=== PATIENT | female | born 1965 | race Caucasian/White ===

== ENCOUNTER → 2017-03-03 | Outpatient (CLI) | payer OTHER | LOC: BMCIMAGING 15:03 | PROVIDERS: ATTEND Physician Assistant | DX: N83.202 Unspecified ovarian cyst, left side (principal); D25.1 Intramural leiomyoma of uterus; Z90.721 Acquired absence of ovaries, unilateral ==

== ENCOUNTER → 2017-06-01 | Outpatient (CLI) | payer OTHER | LOC: FIMAGING 14:54 | PROVIDERS: ATTEND Physician Assistant | DX: N83.202 Unspecified ovarian cyst, left side (principal); D25.9 Leiomyoma of uterus, unspecified ==

== ENCOUNTER → 2017-06-13 | Outpatient (CLI) | payer OTHER | LOC: FIMAGING 08:49 | PROVIDERS: ATTEND Physician Assistant | DX: R92.8 Other abnormal and inconclusive findings on diagnostic imaging of breast (principal) ==

== ENCOUNTER 2018-06-13 03:29 | Emergency (ER) | payer OTHER ==
--- NOTE | 2018-06-13 03:52 | EDPHY ---
H & P Stated Complaint: TINGLING TO L ARM, STIFFNESS TO NECK Time Seen by Provider: 06/13/18 03:51 HPI/ROS: HPI CHIEF COMPLAINT: Left arm numbness tingling. HISTORY OF PRESENT ILLNESS: 53-year-old female otherwise healthy without any significant medical history does not take any daily medications presents emergency room at 4:00 a.m. The morning with left arm numbness. She states she woke up with this around 2:00 a.m.. This did not go away. Developed a headache this concerned her and she decided come the emergency room. She denies any chest pain or shortness of breath, denies focal weakness, only has numbness to her left arm. No facial numbness no leg numbness. Woke up with this around 2:00 a.m.. She states she went to sleep around midnight. Did not have this. Past Medical History: Denies medical history Past Surgical History: Denies surgical history Social History: Denies drugs alcohol tobacco. Family History: Noncontributory ROS REVIEW OF SYSTEMS: 10 Systems were reviewed and negative with the exception of the elements mentioned in the history of present illness. Exam Constitutional appears well nontoxic no acute distress triage nursing summary reviewed, vital signs reviewed, awake/alert. Eyes normal conjunctivae and sclera, EOMI, PERRLA. HENT normal inspection, atraumatic, moist mucus membranes, no epistaxis, neck supple/ no meningismus, no raccoon eyes. Respiratory clear to auscultation bilaterally, normal breath sounds, no respiratory distress, no wheezing. Cardiovascular rate normal, regular rhythm, no murmur, no edema, distal pulses normal. Gastrointestinal soft, non-tender, no rebound, no guarding, normal bowel sounds, no distension, no pulsatile mass. Genitourinary no CVA tenderness. Musculoskeletal no midline vertebral tenderness, full range of motion, no calf swelling, no tenderness of extremities, no meningismus, good pulses, neurovascularly intact. Skin pink, warm, & dry, no rash, skin atraumatic. Neurologic complains of left arm paresthesias, awake, alert and oriented x 3, AAOx3, moves all 4 extremities equally, motor intact, sensory intact, CN II-XII intact, normal cerebellar, normal vision, normal speech. Psychiatric normal mood/affect. Heme/Lymph/Immune no lymphadenopathy. Differential Diagnosis: Includes but is not limited to in a particular order paresthesias, neuropathy, CVA, TIA, intracranial bleed, anxiety, ACS Medical Decision Making: Plan for this patient IV establishment IV fluid bolus , chest x-ray, EKG, CT scan head without contrast, CT angiogram head and neck I will consult [facility]. Re-evaluation: 0403: Patient upon evaluation has no focal neuro deficit but complains of left arm numbness. 0413: I spoke with [facility] they recommend patient getting admitted and MRI of the brain MRI of the cervical spine to rule out MS given history of the abnormal MRI in 2013. The patient did not really follow-up about this MRI. Consulted Dr. Marcel Vasquez with [facility]. EKG interpretation by me on record in XDC system. Impression time of EKG 4:20 a.m. Sinus rhythm rate of 53 without any signs of acute ischemia. No ST elevation no ST depression. 0557: Patient re-evaluated still has numbness tingling left arm. The patient's EKG is nonischemic. Patient's troponin negative Patient had a CT scan head without contrast and CT angiogram head and neck these are negative for acute disease process. These were faxed over by [facility]. 5:15 a.m.. Plan for admission to the hospitalist service for further evaluation requiring MRI to rule out MS. This due to given that she had abnormal MRI in 2012 and really did not follow up. [facility] requesting MRI cervical spine and MRI brain with contrast for MS. Admit to the hospitalist service Spoke with Dr. Harrington Agrees to admit. Patient updated agrees for admission and plan. CT angiogram of the neck and head shows pulmonary nodules this was over-read by our radiologist. Not mentioned on the previous scan. Will contact the patient to make sure she has 12 month followup about her pulmonary nodules. 06/18/18 1546: Followed up with patient about her pulmonary nodules, she understands to have this addressed with her primary care doctor and have repeat imaging in 6-12 months. She does not smoke. I was able to contact her on her cell phone and she called back and we discussed this in detail. She additionally tells me that her left arm numbness tingling has resolved however she is due to follow up and have an MRI tomorrow of her head and neck. I did recommend she discussed with primary care doctor about her pulmonary nodules which she states her primary care doctor has already addressed with her. She understands she may need a follow-up CT for stability these pulmonary nodules. Source: Patient - Personal History LMP (Females 10-55): Unknown Current Tetanus Diphtheria and Acellular Pertussis (TDAP): Yes - Medical/Surgical History Hx Asthma: No Hx Chronic Respiratory Disease: No Hx Diabetes: No Hx Cardiac Disease: No Hx Renal Disease: No Hx Cirrhosis: No Hx Alcoholism: No Hx HIV/AIDS: No Hx Splenectomy or Spleen Trauma: No Other PMH: R OVARY REMOVED, OVARIAN CYST REMOVAL - Social History Smoking Status: Never smoked Constitutional: Initial Vital Signs Temperature (C) 36.4 C 06/13/18 03:37 Heart Rate 59 L 06/13/18 03:37 Respiratory Rate 16 06/13/18 03:37 Blood Pressure 134/75 H 06/13/18 03:37 O2 Sat (%) 98 06/13/18 03:37 O2 Delivery Mode Room Air Allergies/Adverse Reactions: No Known Allergies Allergy (Unverified 06/13/18 03:36) Home Medications: Medication Instructions Recorded NK [No Known Home Meds] 06/13/18 Medical Decision Making - Data Points Laboratory Results: Laboratory Results 06/13/18 04:15 06/13/18 04:15 Medications Given: Discontinued Medications Sodium Chloride (Ns) 1,000 mls @ 0 mls/hr IV EDNOW ONE; Wide Open PRN Reason: Protocol Stop: 06/13/18 04:01 Last Admin: 06/13/18 04:34 Dose: 1,000 mls Point of Care Test Results: Chemistry 06/13/18 06/13/18 04:22 04:18 POC Sodium 141 mEq/L mEq/L (135-145) POC Potassium 3.4 mEq/L mEq/L (3.3-5.0) POC Chloride 104 mEq/L mEq/L (97-110) POC BUN 19 mg/dL mg/dL (7-23) POC Creatinine 0.8 mg/dL mg/dL (0.6-1.0) POC Glucose 93 mg/dL mg/dL (70-100) POC Troponin I 0.00 ng/mL ng/mL (0.00-0.08) ISTAT H&H 06/13/18 04:22 POC Hgb 13.3 gm/dL gm/dL (12.6-16.3) POC Hct 39 % % (38-47) Departure - Departure Disposition: [facility] Inpatient Acute Clinical Impression: Arm paresthesia, left Condition: Good Additional Instructions: Please call and schedule an apt with your primary care provider, please schedule and MRI. If your symptoms return, please come back to the hospital. Referrals: Vandana Zarate PA [Primary Care Provider] - As per Instructions
[2018-06-13] MEDS ORDERED: NS 1,000 ML IV ONE (04:00)
[2018-06-13 04:25] LABS: PLATELET COUNT 255 10^3/uL (150-400)
[2018-06-13 04:34] LABS: INR 0.98 (0.83-1.16); PROTIME(PATIENT) 13.2 SEC (12.0-15.0)
[2018-06-13] MEDS ORDERED: IOPAMIDOL (ISOVUE 370) 75 ML BTL IV ONE (04:35)
[2018-06-13] MEDS ORDERED: ONDANSETRON DISINTEGRATING 4 MG TAB PO PRN (05:56)
[2018-06-13] MEDS ORDERED: ONDANSETRON 4 MG/2 ML VIAL IVP PRN (05:56)
[2018-06-13] MEDS ORDERED: ACETAMINOPHEN 325 MG TAB PO PRN (05:56)
--- NOTE | 2018-06-13 06:39 | PDHOSCONS ---
History and Physical - Chief Complaint L arm numbness - History of Present Illness 53 yo F w/ minimal PMHx presents with L arm numbness. She tells me she noted this when she woke up. She thinks she possiblY slept on her L arm. She has noted this L arm numbness on and off for years. The numbness lasted a few hours so she came in to the ED for evaluation. At the time of my evaluation her symptoms had resolved and she has no complaints. Review of an MRI from 2012 performed for new onset migraines demonstrates non-specific white matter hyperintensities of unclear significance. Due to this MRI finding the possibility of MS was entertained and hospital medicine was called for evaluation. CTH and CTA Head/Neck was performed in the ED and were unremarkable. After our conversation the patient would prefer to undergo work- up as an outpatient if possible. History Information - Allergies/Home Medication List Allergies/Adverse Reactions: No Known Allergies Allergy (Unverified 06/13/18 03:36) Home Medications: NK [No Known Home Meds] 06/13/18 [Last Taken Unknown] I have personally reviewed and updated: family history, medical history - Past Medical History no pertinent PMH - Surgical History Reports: no pertinent surgical hx - Family History Additional family history: Denies family hx MS - Social History Smoking Status: Never smoked Review of Systems Review of Systems: ROS: 10pt was reviewed & negative except for what was stated in HPI & below Physical Exam Physical Exam: Temp Pulse Resp BP Pulse Ox 36.4 C 59 L 16 134/75 H 98 06/13/18 03:37 06/13/18 03:37 06/13/18 03:37 06/13/18 03:37 06/13/18 03:37 Constitutional: no apparent distress, not in pain Eyes: PERRL, EOMI Ears, Nose, Mouth, Throat: moist mucous membranes, no oral mucosal ulcers Cardiovascular: regular rate and rhythym, no murmur, rub, or gallop Respiratory: no respiratory distress, clear to auscultation Gastrointestinal: normoactive bowel sounds, soft, non-tender abdomen Skin: warm, normal color Neurologic: AAOx3, sensation intact bilaterally, CN II-XII Intact, No weakness, No numbness Psychiatric: interacting appropriately, not anxious Lab Data & Imaging Review 06/13/18 04:15 06/13/18 04:15 WBC 5.88 10^3/uL (3.80-9.50) 06/13/18 04:15 RBC 4.28 10^6/uL (4.18-5.33) 06/13/18 04:15 Hgb 12.9 g/dL (12.6-16.3) 06/13/18 04:15 POC Hgb 13.3 gm/dL (12.6-16.3) 06/13/18 04:22 Hct 38.9 % (38.0-47.0) 06/13/18 04:15 POC Hct 39 % (38-47) 06/13/18 04:22 MCV 90.9 fL (81.5-99.8) 06/13/18 04:15 MCH 30.1 pg (27.9-34.1) 06/13/18 04:15 MCHC 33.2 g/dL (32.4-36.7) 06/13/18 04:15 RDW 12.9 % (11.5-15.2) 06/13/18 04:15 Plt Count 255 10^3/uL (150-400) 06/13/18 04:15 MPV 9.9 fL (8.7-11.7) 06/13/18 04:15 Neut % (Auto) 48.8 % (39.3-74.2) 06/13/18 04:15 Lymph % (Auto) 38.6 % (15.0-45.0) 06/13/18 04:15 [place] % (Auto) 8.2 % (4.5-13.0) 06/13/18 04:15 Eos % (Auto) 3.7 % (0.6-7.6) 06/13/18 04:15 Baso % (Auto) 0.5 % (0.3-1.7) 06/13/18 04:15 Nucleat RBC Rel Count 0.0 % (0.0-0.2) 06/13/18 04:15 Absolute Neuts (auto) 2.87 10^3/uL (1.70-6.50) 06/13/18 04:15 Absolute Lymphs (auto) 2.27 10^3/uL (1.00-3.00) 06/13/18 04:15 Absolute Monos (auto) 0.48 10^3/uL (0.30-0.80) 06/13/18 04:15 Absolute Eos (auto) 0.22 10^3/uL (0.03-0.40) 06/13/18 04:15 Absolute Basos (auto) 0.03 10^3/uL (0.02-0.10) 06/13/18 04:15 Absolute Nucleated RBC 0.00 10^3/uL (0-0.01) 06/13/18 04:15 Immature Gran % 0.2 % (0.0-1.1) 06/13/18 04:15 Immature Gran # 0.01 10^3/uL (0.00-0.10) 06/13/18 04:15 PT 13.2 SEC (12.0-15.0) 06/13/18 04:15 INR 0.98 (0.83-1.16) 06/13/18 04:15 APTT 26.2 SEC (23.0-38.0) 06/13/18 04:15 POC Sodium 141 mEq/L (135-145) 06/13/18 04:22 Sodium 137 mEq/L (135-145) 06/13/18 04:15 POC Potassium 3.4 mEq/L (3.3-5.0) 06/13/18 04:22 Potassium 3.8 mEq/L (3.5-5.2) 06/13/18 04:15 POC Chloride 104 mEq/L (97-110) 06/13/18 04:22 Chloride 106 mEq/L (97-110) 06/13/18 04:15 Carbon Dioxide 26 mEq/l (22-31) 06/13/18 04:15 Anion Gap 5 mEq/L (6-14) L 06/13/18 04:15 POC BUN 19 mg/dL (7-23) 06/13/18 04:22 BUN 20 mg/dL (7-23) 06/13/18 04:15 Creatinine 0.8 mg/dL (0.6-1.0) 06/13/18 04:15 POC Creatinine 0.8 mg/dL (0.6-1.0) 06/13/18 04:22 Estimated GFR > 60 06/13/18 04:15 Glucose 92 mg/dL (70-100) 06/13/18 04:15 POC Glucose 93 mg/dL (70-100) 06/13/18 04:22 Calcium 9.4 mg/dL (8.5-10.4) 06/13/18 04:15 Magnesium 1.9 mg/dL (1.6-2.3) 06/13/18 04:15 Total Bilirubin 0.7 mg/dL (0.1-1.4) 06/13/18 04:15 Conjugated Bilirubin 0.1 mg/dL (0.0-0.5) 06/13/18 04:15 Unconjugated Bilirubin 0.6 mg/dL (0.0-1.1) 06/13/18 04:15 AST 23 IU/L (14-46) 06/13/18 04:15 ALT 36 IU/L (9-52) 06/13/18 04:15 Alkaline Phosphatase 62 IU/L (38-126) 06/13/18 04:15 POC Troponin I 0.00 ng/mL (0.00-0.08) 06/13/18 04:18 NT-Pro-B Natriuret Pep 58 pg/mL (0-125) 06/13/18 04:15 Total Protein 6.5 g/dL (6.3-8.2) 06/13/18 04:15 Albumin 3.9 g/dL (3.5-5.0) 06/13/18 04:15 Urine Color COLORLESS 06/13/18 04:35 Urine Appearance CLEAR 06/13/18 04:35 Urine pH 6.0 (5.0-7.5) 06/13/18 04:35 Ur Specific [place] 1.001 (1.002-1.030) L 06/13/18 04:35 Urine Protein NEGATIVE (NEGATIVE) 06/13/18 04:35 Urine Ketones NEGATIVE (NEGATIVE) 06/13/18 04:35 Urine Blood NEGATIVE (NEGATIVE) 06/13/18 04:35 Urine Nitrate NEGATIVE (NEGATIVE) 06/13/18 04:35 Urine Bilirubin NEGATIVE (NEGATIVE) 06/13/18 04:35 Urine Urobilinogen NEGATIVE EU (0.2-1.0) 06/13/18 04:35 Ur Leukocyte Esterase NEGATIVE (NEGATIVE) 06/13/18 04:35 Urine Glucose NEGATIVE (NEGATIVE) 06/13/18 04:35 Assessment & Plan Assessment: 53 yo F presents w/ L arm numbness. Plan: 1. L arm paresthesia - Now resolved; per patient this has been present on and off for years. She has no other neurologic findings. CTH and CTA Head/Neck performed today were unremarkable. MRI in 2012 demonstrated non-specific white matter intensities. I discussed these findings with the patient and the possibility of symptoms representing a stroke or a manifestation of multiple sclerosis. I do feel both of these possibilities are less likely noting nature of symptoms and the fact that these paresthesias have been occurring on and off for years without progression or activity limitation. The patient prefers to undergo work-up as an outpatient and I think this is reasonably safe. - Recommend follow-up with PCP with 24-48 hours - Recommend neurology consultation and repeat MRI brain w/wo as an outpatient - Return precautions given regarding symptoms that would be concerning for stroke or MS flare Case discussed with ED physician Dr. Fleming
[2018-06-13 06:48] VITALS: BP 124/76
--- NOTE | 2018-06-13 07:24 | CPEKG ---
Test Reason : OPEN Blood Pressure : / mmHG Vent. Rate : 053 BPM Atrial Rate : 053 BPM P-R Int : 182 ms QRS Dur : 100 ms QT Int : 430 ms P-R-T Axes : 052 005 051 degrees QTc Int : 404 ms Sinus rhythm Confirmed by Anders Ledbetter ([id number]) on 06/13/2018 7:23:56 AM Referred By: Anders Ledbetter Confirmed By:Anders Ledbetter
--- NOTE | 2018-06-13 17:02 | CPEKG ---
Test Reason : OPEN Blood Pressure : / mmHG Vent. Rate : 054 BPM Atrial Rate : 054 BPM P-R Int : 182 ms QRS Dur : 098 ms QT Int : 430 ms P-R-T Axes : 048 003 056 degrees QTc Int : 408 ms Sinus rhythm Anterior T flattening Confirmed by Shelley Waddell ([id number] on 06/13/2018 5:02:21 PM Referred By: Paco Harrington Confirmed By:Shelley Waddell
== END 2018-06-13 06:50 | disposition still patient (30) ==
LOC: UNDOADMOB 05:56
DX: R20.2 Paresthesia of skin (principal); R91.1 Solitary pulmonary nodule; E86.9 Volume depletion, unspecified
CPT/HCPCS: 82435-PO; 82565-PO; 82947-PO; 84132-PO; 84295-PO; 84484-ER; 84520-PO; 85014-ER; Q9967

== ENCOUNTER → 2018-06-14 | Outpatient (CLI) | payer OTHER | LOC: BMCIMAGING 09:49 | PROVIDERS: ATTEND Physician Assistant | DX: R20.2 Paresthesia of skin (principal); M50.322 Other cervical disc degeneration at C5-C6 level ==